=== PATIENT | female | born 1955 | race Caucasian/White ===

== ENCOUNTER 2017-10-23 22:33 | Emergency (ER) | payer OTHER ==
[~2017-10-23] VITALS: Ht 167.6 cm; Wt 138.3 kg
[2017-10-23 23:14] LABS: BASOPHIL COUNT 0.1 K/uL (0-0.1); EOSINOPHIL (%) 3.5 % (0-5); EOSINOPHIL COUNT 0.2 K/uL (0-0.3); HEMATOCRIT 46.8 % (36.0-46.0); IMMATURE GRANULOCYTE (%) 0.3 % (0.0-0.7); INSTRUMENT ABS NEUTROPHIL CT 4.4 K/uL; LYMPHOCYTE COUNT 1.5 K/uL (1.0-2.8); MCH 31.2 PG (29.0-34.0); MCV 91.9 FL (83-99); MEAN PLAT.VOLUME 10.6 uM^3 (9.5-12.4); MONOCYTE (%) 8.2 % (3-12); MONOCYTE COUNT 0.6 K/uL (0-0.8); NEUTROPHIL (%) 65.3 % (45-76); NEUTROPHIL COUNT 4.4 K/uL (1.8-6.4); PLATELET COUNT 292 K/uL (156-360); RBC DIS.WIDTH-CV 12.7 % (11.8-14.6); RBC DIS.WIDTH-SD 42.7 % (39-53); RED BLOOD COUNT 5.09 M/uL (3.80-5.20); WHITE BLOOD COUNT 6.8 K/uL (4.1-10.2)
[2017-10-23 23:35] LABS: TROP-I INTERPRETATION NEGATIVE; TROPONIN-I 0.02 ng/mL (0.0-0.30)
[2017-10-23 23:50] LABS: CHLORIDE 105 mEq/L (99-109); POTASSIUM 3.4 mEq/L (3.7-5.4); SODIUM 140 mEq/L (136-147)
[2017-10-23 23:53] LABS: GLUCOSE 146 mg/dL (70-99)
[2017-10-23 23:54] LABS: ANION GAP 11 MEQ/L (2-14)
[2017-10-23 23:55] LABS: TOTAL BILIRUBIN 0.6 mg/dL (0.0-1.0)
[2017-10-23 23:56] LABS: ALKALINE PHOSPHATASE 61 IU/L (3-129); GFR ESTIMATE (CALCULATED) > 59 mL/min/
[2017-10-23 23:57] LABS: UREA NITROGEN (BUN) 15 mg/dL (9-23)
[2017-10-24] MEDS ORDERED: MUCINEX DM ER1 EACH PO (02:08)
[2017-10-24] MEDS ORDERED: ALBUTEROL2.5 MG/3 M IH (02:08)
[2017-10-24] MEDS ORDERED: ADVAIR 500/501 DISK IH (02:08)
[2017-10-24] MEDS ORDERED: PREDNISONE20 MG PO (02:08)
[2017-10-24] MEDS ORDERED: AMLODIPINE BESYL5 MG PO (02:13)
[2017-10-24 02:19] VITALS: BP 143/110
== END 2017-10-24 02:40 | disposition home or self-care (01) ==
LOC: EME 22:33
PROVIDERS: Emergency Medicine
DX: J45.901 Unspecified asthma with (acute) exacerbation (principal); J20.9 Acute bronchitis, unspecified; I10 Essential (primary) hypertension; Z88.2 Allergy status to sulfonamides; Z88.0 Allergy status to penicillin; Z88.8 Allergy status to other drugs, medicaments and biological substances; Z91.040 Latex allergy status
CPT/HCPCS: 71020; 80053; 83880; 84484; 85025; 93005; 94640; 99281; 99285; J2930; J7040